=== PATIENT | male | born 1985 | race Caucasian/White ===

== ENCOUNTER 2024-03-21 16:02 | Outpatient (CLI) | payer OTHER ==
--- NOTE | 2024-03-22 12:11 | MRI Report ---
PROCEDURE: Brain WO INDICATIONS: SIGNLE EYE DIPLOPIA, HEADACHE, COGNITIVE CONCERNS TECHNIQUE: Noncontrast axial T1 spin echo, axial T2 fast spin echo, sagittal and axial FLAIR, coronal T2 fast sp in echo, axial gradient echo, axial diffusion and ADC through the brain. COMPARISON: None. FINDINGS: Image quality: Excellent. CSF Spaces: Basal cisterns are patent. No extra-axial fluid collections. Ventricles are normal in size and shape. Brain: No intracranial masses or hemorrhage. [place]/white matter interface is normal. Brainstem appe ars normal. Diffusion-weighted images demonstrate no acute ischemic insult. No chronic ischemic ins ults. Normal intravascular flow voids are present. Skull and face: Calvarium has normal marrow signal. Orbits appear normal. Sinuses: Sinuses and mastoids are clear. IMPRESSION: No intracranial disease process. Reviewed by: Uyen Mojica MD, PhD on 03/22/2024 12:10 PM PDT Approved by: Uyen Mojica MD, PhD on 03/22/2024 12:10 PM PDT Station ID: [id number]
== END 2024-03-21 16:03 | disposition home or self-care (01) ==
LOC: DI 16:02
PROVIDERS: ATTEND Psychiatry & Neurology Neurology
DX: F80.89 Other developmental disorders of speech and language (principal); Z87.820 Personal history of traumatic brain injury